=== PATIENT | female | born 1935 | race Caucasian/White ===

== ENCOUNTER → 2017-01-18 | Outpatient (CLI) | payer MEDICARE, OTHER ==
[~2017-01-18] MED LIST: ASPI-1035 PO; CHOL200035 PO; FURO40TA5 PO; MONT10TA24 PO; OLME40TA12 PO; PANT40TA4 PO; ROSU10TA PO; SOTA80TA PO
== END | disposition home or self-care (01) ==
LOC: CT 07:46
PROVIDERS: ATTEND Otolaryngology Otolaryngology/Facial Plastic Surgery
DX: E07.9 Disorder of thyroid, unspecified (principal); J32.9 Chronic sinusitis, unspecified
CPT/HCPCS: 70486; 76536

== ENCOUNTER → 2017-09-08 | Outpatient (CLI) | payer MEDICARE, OTHER ==
[~2017-09-08] MED LIST changes: -ASPI-1035 PO; +ASPI-1159 PO; +CHOL200010 PO; -CHOL200035 PO
== END | disposition home or self-care (01) ==
LOC: MAMMO 10:16
PROVIDERS: ATTEND Obstetrics & Gynecology
DX: Z12.31 Encounter for screening mammogram for malignant neoplasm of breast (principal); M81.0 Age-related osteoporosis without current pathological fracture; M85.9 Disorder of bone density and structure, unspecified
CPT/HCPCS: 77080; G0202